=== PATIENT | male | born 1990 | race Two or more races ===

== ENCOUNTER 2020-10-31 22:33 | Emergency (ER) | payer OTHER, MEDICAID ==
[~2020-10-31] VITALS: Ht 177.8 cm; Wt 100.0 kg
[2020-10-31 23:22] LABS: BASOPHILS % 0.6 % (0.0-2.0); EOSINOPHILS % 0.1 % (0.0-5.0); HEMATOCRIT. 43.7 % (42.0-52.0); HEMOGLOBIN. 14.6 g/dL (14.0-18.0); LYMPHOCYTES % 11.2 % (20.0-50.0); MEAN CORPUSCULAR HEMOGLOBIN 29.3 pg (28.0-32.0); MEAN PLATELET VOLUME 9.1 fl (7.4-10.4); MONOCYTES % 4.9 % (2.0-8.0); NEUTROPHILS % 83.2 % (40.0-76.0); PLATELET 171 x1000/uL (130-400); RED BLOOD CELL COUNT 4.97 mill/uL (4.7-6.1); RED CELL DISTRIBUTION WIDTH 14.2 % (11.6-14.6)
[2020-10-31 23:24] LABS: CHLORIDE 112 mEq/L (98-107)
[2020-11-01 00:24] VITALS: BP 121/72
== END 2020-11-01 00:36 | disposition home or self-care (01) ==
LOC: ER 22:33
DX: R56.9 Unspecified convulsions (principal)
CPT/HCPCS: 36415; 80053; 85025; 99283